=== PATIENT | female | born 1955 | race Caucasian/White ===

== ENCOUNTER 2018-05-15 02:03 | Emergency (ER) | payer BC ==
[2018-05-15 02:52] VITALS: BMI 28.0
--- NOTE | 2018-05-15 03:25 | PDOC ---
History of Present Illness - General Chief Complaint: Nausea/Vomiting Stated Complaint: VOMITING Time Seen by Provider: 05/15/18 03:24 History Source: Patient - History of Present Illness Initial Comments: 05/15/18 05:00 62-year-old female 3 days ago had a transvaginal ultrasound and was diagnosed with an ovarian mass. Patient reports that progressively she's been having increased pain to the right lower quadrant area with nausea since the ultrasound. Patient also reports dizziness and weakness last night. Deniesvomiting, chest pain. History of appendectomy, bilateral breast mass removal. 05/15/18 05:03 Past History - Past Medical History Allergies/Adverse Reactions: Allergies Allergy/AdvReac Type Severity Reaction Status Date / Time No Known Drug Allergies Allergy Verified 05/15/18 02:52 Home Medications: Ambulatory Orders Amlodipine Besylate [Norvasc -] 5 mg PO DAILY 11/14/12 Ranitidine [Zantac -] 150 mg PO DAILY 05/15/18 Sertraline HCl [Zoloft -] 25 mg PO DAILY 05/15/18 Anemia: No Asthma: No Cancer: No Cardiac Disorders: No CVA: No COPD: No CHF: No Dementia: No Diabetes: No GI Disorders: Yes (ACID REFLUX) Disorders: No HTN: Yes Hypercholesterolemia: No Liver Disease: No Seizures: No Thyroid Disease: No - Surgical History Abdominal Surgery: No Appendectomy: Yes Cardiac Surgery: No Cholecystectomy: No Lung Surgery: No Neurologic Surgery: No Orthopedic Surgery: Yes (BONE SPUR REMOVED LEFT SHOULDER) - Suicide/Smoking/Psychosocial Hx Smoking History: Never smoked Have you smoked in the past 12 months: No Information on smoking cessation initiated: No Hx Alcohol Use: No Drug/Substance Use Hx: No Substance Use Type: None Hx Substance Use Treatment: No Review of Systems - Review of Systems Able to Perform ROS?: Yes Is the patient limited Bulgarian proficient: No Constitutional: Yes: Weakness. No: Symptoms Reported, See HPI, Chills, Diaphoresis, Fever, Loss of Appetite, Malaise, Night Sweats, Weight Stable, Unintentional Wgt. Loss, Unexplained wgt Loss, Other ABD/GI: Yes: Abdominal cramping : No: Symptoms Reported, See HPI, Burning, Dysuria, Discharge, Frequency, Flank Pain, Hematuria, Incontinence, Pain, Urgency, Testicular Mass, Testicular Swelling, Lesions, Testicular Pain, Other Neurological: Yes: Dizziness *Physical Exam - Vital Signs Last Vital Signs Temp Pulse Resp BP Pulse Ox 96.2 F L 72 19 134/75 97 05/15/18 02:03 05/15/18 02:03 05/15/18 02:03 05/15/18 02:03 05/15/18 02:03 - Physical Exam General Appearance: Yes: Appropriately Dressed Respiratory/Chest: positive: Lungs Clear, Normal Breath Sounds Gastrointestinal/Abdominal: positive: Normal Bowel Sounds, Tender (RLQ pain), Soft Extremity: positive: Normal Capillary Refill, Normal Inspection, Normal Range of Motion Integumentary: positive: Normal Color, Dry, Warm Neurologic: positive: Fully Oriented, Alert ED Treatment Course - LABORATORY CBC & Chemistry Diagram: 05/15/18 04:00 05/15/18 04:00 Progress Note - Progress Note Progress Note: A: Abdominal pain; dizziness P; labs IVF CTAP: Right ovarian cyst ct head: negative Medical Decision Making - Medical Decision Making 05/15/18 06:46 TVUS : pending patient signed out to Marko MASSEY. *DC/Admit/Observation/Transfer Diagnosis at time of Disposition: Ovarian cyst, right Abdominal pain Qualifiers: Abdominal location: right lower quadrant Qualified Code(s): R10.31 - Right lower quadrant pain - Discharge Dispostion Disposition: HOME Condition at time of disposition: Fair - Referrals Referrals: Maico Evans MD [Primary Care Provider] - - Patient Instructions Printed Discharge Instructions: DI for Ovarian Cyst Additional Instructions: A right ovarian cyst was again visualized on imaging here. There seems to be good blood flow going to the ovaries. At this time, you need to continue following up with Dr. Bagley to continue workup to rule out malignancy - Post Discharge Activity
[2018-05-15] MEDS ORDERED: SODIUM CHLORIDE 1,000 ML IV STA (03:42)
--- NOTE | 2018-05-15 03:42 | PDOC ---
*Physical Exam - Vital Signs Last Vital Signs Temp Pulse Resp BP Pulse Ox 96.2 F L 72 19 134/75 97 05/15/18 02:03 05/15/18 02:03 05/15/18 02:03 05/15/18 02:03 05/15/18 02:03 ED Treatment Course - LABORATORY CBC & Chemistry Diagram: 05/15/18 04:00 05/15/18 04:00 Medical Decision Making - Medical Decision Making 05/15/18 03:42 Patient seen by the advanced practice provider under my direct supervision. Ancillary testing reviewed as necessary. I agree with plan as outlined by the advanced practice provider. *DC/Admit/Observation/Transfer Diagnosis at time of Disposition: Abdominal pain Qualifiers: Abdominal location: right lower quadrant Qualified Code(s): R10.31 - Right lower quadrant pain - Discharge Dispostion Condition at time of disposition: Fair - Referrals Referrals: Maico Evans MD [Primary Care Provider] - - Patient Instructions - Post Discharge Activity
[2018-05-15] MEDS ORDERED: ONDANSETRON 4 MG/2 ML VIAL IVPUSH ONE (03:44)
[2018-05-15] MEDS ORDERED: ONDANSETRON 4 MG/2 ML VIAL ONE (04:09)
[2018-05-15 04:13] LABS: BASO % 0.5 % (0-2.0); EOS % 3.2 % (0-4.5); HEMATOCRIT 38.9 % (32.4-45.2); HEMOGLOBIN 13.6 GM/dL (10.7-15.3); MCH 30.6 pg (25.7-33.7); MCHC 34.9 g/dl (32.0-36.0); MEAN CELL VOLUME 87.7 fl (80-96); MEAN PLT VOLUME 7.3 fl (7.5-11.1); NEUT % 73.3 % (42.8-82.8); PLATELET COUNT 274 K/MM3 (134-434); RBC 4.44 M/mm3 (3.60-5.2); RDW 14.6 % (11.6-15.6); WHITE BLOOD COUNT 5.8 K/mm3 (4.0-10.0)
[2018-05-15 04:33] LABS: EPI CELLS 3.5 /HPF (0-5); HYALINE CASTS 1 /hpf (0-8); URINE APPEARANCE CLEAR; URINE BILIRUBIN NEGATIVE (NEGATIVE); URINE COLOR YELLOW; URINE GLUCOSE (UA) NEGATIVE (NEGATIVE); URINE KETONE NEGATIVE (NEGATIVE); URINE LEUK ESTERASE 1+ (NEGATIVE); URINE NITRITE NEGATIVE (NEGATIVE); URINE PROTEIN NEGATIVE (NEGATIVE); URINE RBC 2 /hpf (0-4); URINE UROBILINOGEN 0.2 mg/dL (0.2-1.0); URINE WBC 10 /hpf (0-5)
[2018-05-15 04:39] LABS: ALBUMIN 3.6 g/dl (3.4-5.0); ALK PHOS 53 U/L (45-117); ANION GAP 8 MMOL/L (8-16); BILIRUBIN,TOTAL 0.2 mg/dL (0.2-1); BLOOD UREA NITROGEN 19 mg/dL (7-18); CALCIUM 8.8 mg/dL (8.5-10.1); CHLORIDE 106 mmol/L (98-107); CO2 28 mmol/L (21-32); CREATININE 0.9 mg/dL (0.55-1.3); GLUCOSE,RANDOM 125 mg/dL (74-106); LIPASE 262 U/L (73-393); POTASSIUM 4.2 mmol/L (3.5-5.1); SGOT/AST 15 U/L (15-37); SGPT/ALT 21 U/L (13-61); SODIUM 141 mmol/L (136-145); TOT PROT 6.9 g/dl (6.4-8.2)
[2018-05-15] MEDS ORDERED: ACETAMINOPHEN 1000 MG/100 ML VIAL (NON FORMULARY) IVPB ONE (05:26)
[2018-05-15] MEDS ORDERED: ACETAMINOPHEN INJECTION 100 ML IVPB ONE (05:27)
[2018-05-15] MEDS ORDERED: MECLIZINE HCL 25 MG TABLET (FP) PO ONE (06:26)
[2018-05-15 06:36] VITALS: TEMP 97.5
[2018-05-15] MEDS ORDERED: MECLIZINE HCL 25 MG TABLET (FP) ONE (06:36)
--- NOTE | 2018-05-15 07:36 | PDOC ---
*Physical Exam - Vital Signs Last Vital Signs Temp Pulse Resp BP Pulse Ox 97.5 F L 67 18 115/69 96 05/15/18 06:34 05/15/18 06:34 05/15/18 06:34 05/15/18 06:34 05/15/18 06:34 - Physical Exam General Appearance: Yes: Appropriately Dressed. No: Apparent Distress HEENT: positive: Normal Voice Neck: positive: Supple Respiratory/Chest: negative: Respiratory Distress Gastrointestinal/Abdominal: positive: Soft Musculoskeletal: negative: CVA Tenderness Integumentary: positive: Dry, Warm Neurologic: positive: Fully Oriented, Alert, Normal Mood/Affect ED Treatment Course - LABORATORY CBC & Chemistry Diagram: 05/15/18 04:00 05/15/18 04:00 - ADDITIONAL ORDERS Additional order review: Laboratory Results 05/15/18 05/15/18 04:20 04:00 Sodium 141 Potassium 4.2 Chloride 106 Carbon Dioxide 28 Anion Gap 8 BUN 19 H Creatinine 0.9 Creat Clearance w eGFR 63.65 Random Glucose 125 H Calcium 8.8 Total Bilirubin 0.2 AST 15 ALT 21 Alkaline Phosphatase 53 Troponin I < 0.02 Total Protein 6.9 Albumin 3.6 Lipase 262 Urine Color Yellow Urine Appearance Clear Urine pH 6.0 Ur Specific [place] 1.017 Urine Protein Negative Urine Glucose (UA) Negative Urine Ketones Negative Urine Blood Negative Urine Nitrite Negative Urine Bilirubin Negative Urine Urobilinogen 0.2 Ur Leukocyte Esterase 1+ H Urine WBC (Auto) 10 Urine RBC (Auto) 2 Urine Casts (Auto) 1 U Epithel Cells (Auto) 3.5 Urine Bacteria (Auto) 209.0 05/15/18 04:00 RBC 4.44 MCV 87.7 MCHC 34.9 RDW 14.6 MPV 7.3 L Neutrophils % 73.3 D Lymphocytes % 16.0 D Monocytes % 7.0 Eosinophils % 3.2 Basophils % 0.5 - Medications Given in the ED: ED Medications Discontinued Medications Generic Name Dose Route Start Last Admin Trade Name Freq PRN Reason Stop Dose Admin Acetaminophen 1,000 mg 05/15/18 05:26 05/15/18 05:32 Ofirmev Injection - IVPB 05/15/18 05:27 1,000 mg ONCE ONE Administration Sodium Chloride 1,000 mls @ 1,000 mls/hr 05/15/18 03:42 05/15/18 04:25 Normal Saline - IV 05/15/18 04:41 1,000 mls/hr ASDIR STA Administration Meclizine HCl 25 mg 05/15/18 06:26 05/15/18 06:46 Antivert - PO 05/15/18 06:27 25 mg ONCE ONE Administration Ondansetron HCl 4 mg 05/15/18 03:44 05/15/18 04:26 Zofran Injection IVPUSH 05/15/18 03:45 4 mg ONCE ONE Administration Medical Decision Making - Medical Decision Making 05/15/18 07:36 Signed out to me at 7 AM 62 yo F, currently being worked up by Dr Bagley for possible ovarian cancer for R ovarian mass, here w/ worsening R pelvic pain. Per prior team, labs unremarkable. CT a/p w/ ~4.4 cm R ovarian "cyst" on CT w/ no free fluid. US r/o torsion pending. Of note, pt also c/o dizziness and had CTH which was negative 05/15/18 10:34 4x3 cm R ovarian cyst w/ good arterial flow and ? faint venous flow. Pt pain free at this time w/ benign abd on rpt exam. Dispo d/w Dr Guillory who agrees that pt can be discharged to f/u with her [facility]. Pt now report that her next appt in on 05/22/18 and that tumor markers already sent by [facility] and pending *DC/Admit/Observation/Transfer Diagnosis at time of Disposition: Ovarian cyst, right Abdominal pain Qualifiers: Abdominal location: right lower quadrant Qualified Code(s): R10.31 - Right lower quadrant pain - Discharge Dispostion Disposition: HOME Condition at time of disposition: Fair - Referrals Referrals: Maico Evans MD [Primary Care Provider] - - Patient Instructions Printed Discharge Instructions: DI for Ovarian Cyst Additional Instructions: A right ovarian cyst was again visualized on imaging here. There seems to be good blood flow going to the ovaries. At this time, you need to continue following up with Dr. Bagley to continue workup to rule out malignancy - Post Discharge Activity
--- NOTE | 2018-05-15 09:36 | EKG ---
Test Reason : Blood Pressure : / mmHG Vent. Rate : 071 BPM Atrial Rate : 071 BPM P-R Int : 184 ms QRS Dur : 080 ms QT Int : 444 ms P-R-T Axes : 051 015 026 degrees QTc Int : 482 ms NORMAL SINUS RHYTHM NORMAL ECG WHEN COMPARED WITH ECG OF 14-NOV-2012 09:25, T WAVE AMPLITUDE HAS DECREASED IN ANTERIOR LEADS Confirmed by JESSENIA GUPTA, BIANCA ([id number]) on 05/15/2018 9:36:20 AM Referred By: Confirmed By:BIANCA RUELAS MD
[2018-05-15 11:12] VITALS: BP 113/73; PULSE 68
== END 2018-05-15 11:12 | disposition home or self-care (01) ==
LOC: JER 02:03
PROC: 3E033NZ Introduction of Analgesics, Hypnotics, Sedatives into Peripheral Vein, Percutaneous Approach (ICD-10-PCS; principal; 2018-05-15)
PROC: 3E033GC Introduction of Other Therapeutic Substance into Peripheral Vein, Percutaneous Approach (ICD-10-PCS; 2018-05-15)
PROC: 3E0337Z Introduction of Electrolytic and Water Balance Substance into Peripheral Vein, Percutaneous Approach (ICD-10-PCS; 2018-05-15)
DX: N83.201 Unspecified ovarian cyst, right side (principal); R10.31 Right lower quadrant pain
CPT/HCPCS: 36415; 70450-TC; 74177-TC; 76830-TC; 80053; 81003; 82962; 83690; 84484; 85025; 87086; 93005; 93010; 99283-25; J0131; J7030

== ENCOUNTER 2018-06-03 05:07 | Day surgery (SDC) | payer BC ==
[2018-05-28 12:26] VITALS: BMI 27.1
--- NOTE | 2018-06-03 12:59 | HP ---
History & Physical Update - Physical Physical: No Change - Assessment Assessment: No Change - Plan Plan: No Change (H&P reviwed, no cahnges . rt ovarian cyst , for laparoscopic RT SO, possible BSO)
[2018-06-03] MEDS ORDERED: PROPOFOL 20 ML ONE ×2 (15:29)
[2018-06-03] MEDS ORDERED: ROCURONIUM BROMIDE 50 MG/5 ML VIAL ONE (15:29)
[2018-06-03] MEDS ORDERED: MIDAZOLAM HCL 2 MG/2 ML SINGLE DOSE VIAL ONE (15:29)
[2018-06-03] MEDS ORDERED: LIDOCAINE HCL/PF 2% SDV 5ML VIAL ONE (15:31)
[2018-06-03] MEDS ORDERED: PROMETHAZINE HCL 25 MG/1 ML VIAL IVPUSH PRN (15:42)
[2018-06-03] MEDS ORDERED: ONDANSETRON 4 MG/2 ML VIAL IVPUSH PRN ×2 (15:42→17:11)
[2018-06-03] MEDS ORDERED: oxyCODONE HCL 5 MG TABLET PO PRN ×2 (15:42→17:11)
[2018-06-03] MEDS ORDERED: LACTATED RINGERS SOLUTION 1,000 ML IV SCH (15:45)
[2018-06-03] MEDS ORDERED: DEXAMETHASONE SOD PHOSPHATE 4 MG/1 ML VIAL ONE (15:50)
[2018-06-03] MEDS ORDERED: SODIUM CHLORIDE 0.9% P/F 10 ML VIAL IJ ONE (15:57)
[2018-06-03] MEDS ORDERED: ceFAZolin SODIUM 1 GM VIAL ONE (15:57)
[2018-06-03] MEDS ORDERED: ceFAZolin SODIUM 1 GM VIAL IVPB ONE (15:58)
[2018-06-03] MEDS ORDERED: GLYCOPYRROLATE 0.2 MG/1 ML VIAL ONE (16:25)
[2018-06-03] MEDS ORDERED: NEOSTIGMINE METHYLSULFATE 0.5 MG/ML - 10 ML MDV ONE (16:25)
[2018-06-03] MEDS ORDERED: KETOROLAC TROMETHAMINE 30 MG/1 ML VIAL ONE (16:46)
[2018-06-03] MEDS ORDERED: BUPIVACAINE HCL/PF 0.5% (5MG/ML) 10 ML VIAL ONE (16:47)
[2018-06-03] MEDS ORDERED: BUPIVACAINE HCL/PF 0.5% (5MG/ML) 10 ML VIAL NR ONE ×2 (16:48)
[2018-06-03] MEDS ORDERED: IBUPROFEN 600 MG TABLET (FP) PO PRN (17:11)
[2018-06-03] MEDS ORDERED: IBUPROFEN 800 MG/8 ML IJ IVPB PRN (17:11)
[2018-06-03] MEDS ORDERED: ELECTROLYTE-148 SOLN 1,000 ML IV SCH (17:15)
[2018-06-03] MEDS ORDERED: oxyCODONE HCL 5 MG TABLET ONE (18:36)
[2018-06-03] MEDS ORDERED: ONDANSETRON 4 MG/2 ML VIAL ONE (18:36)
[2018-06-03 19:16] VITALS: TEMP 97.3
[2018-06-03 20:06] VITALS: BP 130/74; PULSE 82
--- NOTE | 2018-06-04 12:21 | OP ---
DATE OF OPERATION: 06/03/2018 PREOPERATIVE DIAGNOSIS: Right ovarian cyst, pelvic pain. POSTOPERATIVE DIAGNOSIS: Right ovarian cyst, pelvic pain. PROCEDURE: Removal of the right ovarian cyst and bilateral salpingo-oophorectomy. SURGEON: Reg Bagley MD STOREKEEPER STEWARD: Yared Bobo MD ANESTHESIA: General. ESTIMATED BLOOD LOSS: 50 mL. DESCRIPTION OF PROCEDURE: The patient was taken to the operating room under adequate general anesthesia in dorsal lithotomy position. Examination under anesthesia revealed external genitalia to be normal. Vagina was normal. Cervix was clean. No lesion. The uterus was normal size. Adnexa no masses palpable. Then with a weighted speculum in the vagina, anterior lip of the cervix was grasped with a single-tooth tenaculum. Then Hulka was introduced into the uterine cavity for manipulation. Breaux was inserted. The patient was placed in dorsal lithotomy position for a pelviscopy. A small infraumbilical skin incision was made. Veress needle was introduced. Pneumoperitoneum was established. A 5-mm trocar was introduced through the umbilical area under direct vision, and a scope was introduced. Then under direct vision, a 10-mm trocar was introduced through the left hypergastric area, and a 5 mm through the right hypergastric area. Visualization of the upper abdomen appeared to be normal. There was a large right ovarian cyst approximately 6 cm in size multiloculated with clear fluid, which was sitting on the right ovary and covering the whole adnexa on the right side. The left ovary was adherent to the pelvic sidewall in the colon. At this time, the right ovarian cyst was grasped and with an Endo Diomedes excised from the ovary and put in the bag and was removed in its entirety. Because of adhesion of the ovarian to the left pelvic sidewall and the ovary had multiple small whitish lesion on the right side, decided to do the salpingo-oophorectomy bilaterally. At this time, the adhesions were lysed on the left ovary from the colon and the pelvic sidewall. Ovary was released. Infundibulopelvic ligament was identified bilaterally, grasped with a LigaSure bipolar cautery, cauterized, and cut and then the right ovary along the mesosalpinx cauterized with bipolar cautery. Then the ovarian ligament was grasped with bipolar cautery, cauterized, and cut. The tubo-ovarian ligament was grasped, and the specimen was removed. The same procedure repeated for the opposite tube and ovary. Then the tubes and ovaries were placed in a different bag and were removed individually. Pelvic cavity several times irrigated. No active bleeding was seen. Then the hypergastric trocar incision area was closed with interrupted sutures of 0 Vicryl. Same for the umbilical area. Then the skin was closed with Dermabond glue. The patient tolerated the procedure well and left the OR in good position. Dennis [id number]
--- NOTE | 2018-06-05 17:40 | PATH ---
Cytology Non-Gynecological Report Patient Name: ZARINA MOSES Med. Rec. #: [id number] /Age/Gender: 1955 (Age: 62) / F Account: [id number] Location: [facility] Taken: 06/03/2018 Received: 06/04/2018 Reported: 06/05/2018 Physicians: Reg Bagley M.D. Specimen(s) Received PERITONEAL WASHING Clinical History Ovarian cyst Final Diagnosis PERITONEAL WASHING FOR CYTOLOGY: SATISFACTORY FOR EVALUATION. NO MALIGNANT CELLS IDENTIFIED. MESOTHELIAL CELLS AND LYMPHOCYTES PRESENT. Comment: Recommend correlation with clinical findings and follow up as clinically indicated. See concurrent material [id number]. Electronically Signed Tawanna Rogers M.D. Gross Description Approximately 30 cc of clear fluid received fresh. One cytofunnel prepared and Pap stained. One cellblock prepared.
--- NOTE | 2018-06-05 18:05 | PATH ---
Surgical Pathology Report Patient Name: ZARINA MOSES [facility]. Rec. #: [id number] /Age/Gender: 1955 (Age: 62) / F Account: [id number] Location: [facility] Taken: 06/03/2018 Received: 06/04/2018 Reported: 06/05/2018 Physicians: Reg Bagley M.D. Specimen(s) Received A: OVARY AND FALLOPIAN TUBE, RIGHT B: OVARIAN CYST C: OVARY AND FALLOPIAN TUBE, LEFT Clinical History 9Unspecified ovarian cyst Final Diagnosis A. OVARY AND FALLOPIAN TUBE, RIGHT, LAPAROSCOPIC SALPINGO-OOPHORECTOMY: OVARY WITHOUT SIGNIFICANT PATHOLOGIC FINDINGS. FALLOPIAN TUBE WITH PARATUBAL CYST (INCLUDING FULL LUMINAL PORTION AND FIMBRIATED END). B. OVARIAN CYST, CYSTECTOMY: BENIGN CYST WALL WITH FLATTENED EPITHELIAL LINING, COMPATIBLE WITH SEROUS CYSTADENOMA. C. FALLOPIAN TUBE AND OVARY, LEFT, LAPAROSCOPIC SALPINGO-OOPHORECTOMY: OVARY WITHOUT SIGNIFICANT PATHOLOGIC FINDINGS. FALLOPIAN TUBE WITH ENDOSALPINGOSIS. Electronically Signed Tawanna Rogers M.D. Gross Description A. Received in formalin labeled "right fallopian tube and ovary," is a 3.5 cm in length fimbriated fallopian tube. The outer surface is tariq enriquez and smooth. Sectioning reveals an unremarkable lumen. The attached right ovary measures 3.0 x 1.0 x 0.8 cm. The outer surface is tariq, convoluted and smooth. Sectioning reveals unremarkable ovarian parenchyma. Plastic Boat Buffer sections are submitted in 3 cassettes as follows: 1-fimbria; 2-cross sections of fallopian tube; 3-ovary. B. Received in formalin labeled "ovarian cyst," is a 4.0 x 3.3 x 0.1 cm tariq-lawson portion of membranous tissue, possibly consistent with a disrupted cyst wall. The specimen is sectioned and entirely submitted in one cassette. C. Received in formalin labeled "left fallopian tube and ovary," is a 3.2 cm in length fimbriated fallopian tube. The outer surface is tariq enriquez and smooth. Sectioning reveals an unremarkable lumen. Also received within the same container is a 2.3 x 1.2 x 0.9 cm tariq-lawson ovary. Sectioning reveals unremarkable ovarian parenchyma. Plastic Boat Buffer sections are submitted in 3 cassettes as follows: 1-fimbria; 2-cross sections of fallopian tube; 3-ovary. 06/04/2018 [facility]06/04/2018
== END 2018-06-03 20:05 | disposition home or self-care (01) ==
LOC: JASU-SURG 05:07
PROVIDERS: ATTEND Obstetrics & Gynecology
PROC: 0UB74ZZ Excision of Bilateral Fallopian Tubes, Percutaneous Endoscopic Approach (ICD-10-PCS; 2018-06-03)
PROC: 0UB04ZZ Excision of Right Ovary, Percutaneous Endoscopic Approach (ICD-10-PCS; principal; 2018-06-03 15:00)
PROC: 0UB24ZZ Excision of Bilateral Ovaries, Percutaneous Endoscopic Approach (ICD-10-PCS; 2018-06-03 15:00)
DX: N83.201 Unspecified ovarian cyst, right side (principal); I10 Essential (primary) hypertension
CPT/HCPCS: 88108; 88305-TC; 88307-TC; 94760

== ENCOUNTER 2020-08-25 05:26 | Day surgery (SDC) | payer BC ==
[2020-08-20 16:52] VITALS: BMI 27.6
[2020-08-25 12:02] VITALS: TEMP 97.2
[2020-08-25 12:45] VITALS: BP 121/71; PULSE 62
== END 2020-08-25 13:17 | disposition home or self-care (01) ==
LOC: JASU-ENDO 05:26
PROVIDERS: ATTEND Internal Medicine Gastroenterology
PROC: 0DBL8ZX Excision of Transverse Colon, Via Natural or Artificial Opening Endoscopic, Diagnostic (ICD-10-PCS; 2020-08-25)
PROC: 0DBH8ZX Excision of Cecum, Via Natural or Artificial Opening Endoscopic, Diagnostic (ICD-10-PCS; principal; 2020-08-25 11:00)
DX: Z12.11 Encounter for screening for malignant neoplasm of colon (principal); Z86.010 Personal history of colon polyps; D12.0 Benign neoplasm of cecum; D12.3 Benign neoplasm of transverse colon; K64.8 Other hemorrhoids; K57.30 Diverticulosis of large intestine without perforation or abscess without bleeding